=== PATIENT | female | born 2005 | race Caucasian/White ===

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

== ENCOUNTER 2024-05-28 07:24 | Outpatient (CLI) | payer BC | END 2024-05-28 07:25 | disposition home or self-care (01) | LOC: NM 07:24 | PROVIDERS: ATTEND Internal Medicine | DX: R11.2 Nausea with vomiting, unspecified (principal) | CPT/HCPCS: 78264; A9541 ==